=== PATIENT | female | born 1960 | race Caucasian/White ===

== ENCOUNTER 2023-10-07 09:04 | Emergency (ER) | payer OTHER ==
--- OUTSIDE RECORDS SUMMARY | 2023-10-07 09:07 | XMS REPORT | Continuity of Care Document ---
:[address] [facility] t Address [address] [facility] [address] [place] [address] Care Team Providers Name Role Phone Asked, No Pcp Primary Care Physician Unavailable Beto Ness Attending Clinician Unavailable TEDDY_Amilcar_T Attending Clinician Unavailable Nydia Hedrick MD Attending Clinician Stacia Fitzgerald Attending Clinician [phone] DR CHRISTINE HONEYCUTT Attending Clinician Unavailable VESTA_ONELIA_Amilcar_T Admitting Clinician Unavailable DR CHRISTINE HONEYCUTT Admitting Clinician Unavailable Payers Payer Name Policy Type Policy Number Effective Date Expiration Date [facility] [id number] Problems Condition Condition Condition Status Onset Resolution Last Treating Co mments Source Name Details Category Date Date Treatment Clinician Date History of History of Problem Active [facility] tear of Tear of 4-19 Medical retina Retina 00:00: 00 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 00:00: 00 Benign Benign Problem Active 2017-11 [facility] essential Essential 2-20 Medi tory hypertensi Hypertensi 00:00: on on 00 Cobalamin Cobalamin Problem Active 2016-11 Angy via deficiency Deficiency 2-20 Me dical 00:00: 00 Vitamin D Vitamin D Problem Active 2016-11 Angy via deficiency Deficiency 2-20 Me dical 00:00: 00 Mixed Mixed Problem Active 2016-11 [facility] hyperlipid Hyperlipid 2-20 Me dical emia emia 00:00: 00 Asthma Asthma Problem Active 2016-11 [facility] 2-20 Medical 00:00: 00 Allergies, Adverse Reactions, Alerts Allergy Allergy Status Severity Reaction(s) Onset Inactive Treating Comm ents Source Name Type Date Date Clinician Penicill DA Active U Anaphylaxis [facility] Cm ins 18 00:00: 00 erythrom DA Active U Difficulty [facility] m ycin Swallowing 18 base 00:00: 00 Azithrom Allergy Active [facility] ycin to Medical substanc e FISH Allergy Active Moderate Angioedema Angy via CONTAINI to to severe Medic al NG substanc PRODUCTS e PENICILL Allergy Active [facility] INS to Medical substanc e CIGARETT Allergy Active [facility] E SMOKE to Medical substanc e FIRE ANT Allergy Active [facility] to Medical substanc e House Allergy Active [facility] Dust to Medical substanc e Mold Allergy Active [facility] to Medical substanc e SHELLFIS Allergy Active [facility] H to Medical DERIVED substanc e Social History Social Habit Start Date Stop Date Quantity Comments Source Sexual orientation 2021-08-07 Heterosexual Meth odist 07:19:45 (finding) Hospital Sex Assigned At [birth year] F Sikhism 00:00:00 00:00:00 [facility] Smoking Status Start Date Stop Date Source Never Smoker [facility] Tobacco smoking consumption unknown [facility] Medications Ordered Filled Start Stop Current Ordering Indication Dosage Frequency Signature Comments Components Source Medication Medication Date Date Medication? Clinician (SIG) Name Name hydrochloro hydrochloro No 1 Q1D hydrochlor [facility] thiazide thiazide 12-10 othiazide Me dical 12.5 mg 12.5 mg 00:00: 12.5 mg tablet Take tablet Take 00 tablet 1 tablet 1 tablet Take 1 every day every day tablet by oral by oral every day route as route as by oral needed for needed for route as 90 days. 90 days. needed for 90 days. prednisolon prednisolon No prednisolo [facility] e acetate 1 e acetate 1 2-06 ne acetate Medical % eye % eye 00:00: 1 % eye drops,suspe drops,suspe 00 drops,susp nsion nsion ension Instill by Instill by Instill by ophthalmic ophthalmic ophthalmic route for route for route for 30 days. 30 days. 30 days. Ventolin Ventolin 2023-0 No 2puff(s Q5H Ventolin [facility] HFA 90 HFA 90 2-06 ) HFA 90 Medical mcg/actuati mcg/actuati 00:00: mcg/actuat on aerosol on aerosol 00 ion inhaler inhaler aerosol Inhale 2 Inhale 2 inhaler puffs every puffs every Inhale 2 4-6 hours 4-6 hours puffs by by every 4-6 inhalation inhalation hours by route as route as inhalation needed for needed for route as 16 days. 16 days. needed for 16 days. hydrochloro hydrochloro 0 No 1 Q1D hydrochlor [facility] thiazide thiazide 12-10 othiazide Me dical 12.5 mg 12.5 mg 00:00: 12.5 mg tablet Take tablet Take 00 tablet 1 tablet 1 tablet Take 1 every day every day tablet by oral by oral every day route as route as by oral needed for needed for route as 90 days. 90 days. needed for 90 days. prednisolon prednisolon No prednisolo [facility] e acetate 1 e acetate 1 12-10 ne acetate Medical % eye % eye 00:00: 1 % eye drops,suspe drops,suspe 00 drops,susp nsion nsion ension Instill by Instill by Instill by ophthalmic ophthalmic ophthalmic route for route for route for 30 days. 30 days. 30 days. Ventolin Ventolin 0 No 2puff(s Q5H Ventolin [facility] HFA 90 HFA 90 2-06 ) HFA 90 Medical mcg/actuati mcg/actuati 00:00: mcg/actuat on aerosol on aerosol 00 ion inhaler inhaler aerosol Inhale 2 Inhale 2 inhaler puffs every puffs every Inhale 2 4-6 hours 4-6 hours puffs by by every 4-6 inhalation inhalation hours by route as route as inhalation needed for needed for route as 16 days. 16 days. needed for 16 days. atorvastati atorvastati No atorvastat [facility] n 10 mg n 10 mg in 10 mg Medic al tablet TAKE tablet TAKE tablet 1 TABLET BY 1 TABLET BY TAKE 1 MOUTH EVERY MOUTH EVERY TABLET BY DAY DAY MOUTH EVERY DAY lisinopril lisinopril No lisinopril [facility] 40 mg 40 mg 40 mg Medical tablet TAKE tablet TAKE tablet 1 TABLET BY 1 TABLET BY TAKE 1 MOUTH EVERY MOUTH EVERY TABLET BY DAY DAY MOUTH EVERY DAY atorvastati atorvastati No 1 Q1D atorvastat [facility] n 10 mg n 10 mg in 10 mg Medic al tablet Take tablet Take tablet 1 tablet 1 tablet Take 1 every day every day tablet by oral by oral every day route for route for by oral 90 days. 90 days. route for 90 days. diclofenac diclofenac No 1drop(s QID diclofenac [facility] 0.1 % eye 0.1 % eye ) 0.1 % eye Medical drops drops drops Instill 1 Instill 1 Instill 1 drop 4 drop 4 drop 4 times a day times a day times a by by day by ophthalmic ophthalmic ophthalmic route for route for route for 25 days. 25 days. 25 days. fluticasone fluticasone No 2spray( Q1D fluticason [facility] propionate propionate s) e Med ical 50 50 propionate mcg/actuati mcg/actuati 50 on nasal on nasal mcg/actuat spray,suspe spray,suspe ion nasal nsion [place] nsion [place] spray,susp 2 sprays 2 sprays ension every day every day [place] 2 by nasal by nasal sprays route for route for every day 90 days. 90 days. by nasal route for 90 days. hydrochloro hydrochloro No 1 Q1D hydrochlor [facility] thiazide thiazide othiazide Me dical 12.5 mg 12.5 mg 12.5 mg tablet Take tablet Take tablet 1 tablet 1 tablet Take 1 every day every day tablet by oral by oral every day route as route as by oral needed for needed for route as 90 days. 90 days. needed for 90 days. lisinopril lisinopril No 1 Q1D lisinopril [facility] 40 mg 40 mg 40 mg Medical tablet Take tablet Take tablet 1 tablet 1 tablet Take 1 every day every day tablet by oral by oral every day route for route for by oral 30 days. 30 days. route for 30 days. Ventolin Ventolin No 2puff(s Q5H Ventolin [facility] HFA 90 HFA 90 ) HFA 90 Medical mcg/actuati mcg/actuati mcg/actuat on aerosol on aerosol ion inhaler inhaler aerosol Inhale 2 Inhale 2 inhaler puffs every puffs every Inhale 2 4-6 hours 4-6 hours puffs by by every 4-6 inhalation inhalation hours by route as route as inhalation needed for needed for route as 16 days. 16 days. needed for 16 days. atorvastati atorvastati No atorvastat Dena n 10 mg n 10 mg in 10 mg Medic al tablet TAKE tablet TAKE tablet 1 TABLET BY 1 TABLET BY TAKE 1 MOUTH EVERY MOUTH EVERY TABLET BY DAY DAY MOUTH EVERY DAY lisinopril lisinopril No lisinopril [facility] 40 mg 40 mg 40 mg Medical tablet TAKE tablet TAKE tablet 1 TABLET BY 1 TABLET BY TAKE 1 MOUTH EVERY MOUTH EVERY TABLET BY DAY DAY MOUTH EVERY DAY Vital Signs Vital Name Observation Time Observation Value Comments Source BP Systolic 2022-12-14 00:00:00 136 mm[Hg] [facility]ena [facility] Body Weight 2022-12-14 00:00:00 3904 [oz_av] [facility]ena [facility] BP Diastolic 2022-12-14 00:00:00 72 mm[Hg] [facility] Height 2022-12-14 00:00:00 65 [in_i] Dena Thao edical BMI (Body Mass Index) 2022-12-14 00:00:00 40.6 kg/m2 [facility] BP Diastolic 2022-12-10 00:00:00 78 mm[Hg] Dena Thao edical Height 2022-12-10 00:00:00 65 [in_i] Dena Thao edical BMI (Body Mass Index) 2022-12-10 00:00:00 40.7 kg/m2 [facility] BP Systolic 2022-12-10 00:00:00 122 mm[Hg] Dena Thao edical Body Weight 2022-12-10 00:00:00 3909 [oz_av] [facility]ena Thao ed[facility] BP Diastolic 2022-03-28 00:00:00 80 mm[Hg] [facility]ao ed[facility] Height 2022-03-28 00:00:00 65 [in_i] Dena Thao edical BMI (Body Mass Index) 2022-03-28 00:00:00 40.1 kg/m2 [facility] BP Systolic 2022-03-28 00:00:00 132 mm[Hg] [facility]ena Thao ed[facility] Body Weight 2022-03-28 00:00:00 3856 [oz_av] Dena Thao edical Procedures Procedure Date / Time Performing Clinician Source Performed US BREAST COMPLETE 2023-01-29 19:15:[address] [facility] BILATERAL MAMMO BREAST DIAGNOSTIC 2023-01-29 18:52:27 Nydia Hedrick [facility] TOMOSYNTHESIS BILATERAL MAMMO, screening, 2022-12-14 00:00:00 [facility] Med ical digital, bilateral Unlisted Px Ant Segment 2022-02-20 00:00:00 [facility] Eye Ophthalmologic Surgery 2020-10-14 00:00:00 [facility] a Medical Colonoscopy 2017-04-04 00:00:00 [facility] Medic al Eye Surgery [facility] Medical Reconstruction of Cornea [facility] Medical Plan of Care Planned Activity Planned Date Details Comments Source Future Scheduled Test 2023-10-07 Screening [facility] 09:06:28 malignant neoplasm of colon (procedure) [code = 656960192] Future Scheduled Test 2023-10-07 [facility] 09:[facility]28 malignant neoplasm of colon (procedure) [code = 396849380] Future Scheduled Test 2023-10-07 [facility] 09:06:28 malignant neoplasm of colon (procedure) [code = 086172639] Future Scheduled Test 2023-10-[address] [facility] 09:06:28 screening (procedure) [code = 954391840] Future Scheduled Test 2023-10-07 Screening for [facility] 09:06:28 malignant neoplasm of cervix (procedure) [code = 704448293] Future Scheduled Test 2023-10-07 Screening for [facility] 09:06:28 malignant neoplasm of colon (procedure) [code = 429815290] Future Scheduled Test 2023-10-07 [facility] 09:06:28 malignant neoplasm of colon (procedure) [code = 683407885] Future Scheduled Test 2023-10-07 SHINGLES VACCINES [facility] 09:06:28 (1 of 2) [code = SHINGLES VACCINES (1 of 2)] Future Scheduled Test 2023-10-07 COVID-19 VACCINE ([address] [place] [address] 09:06:28 - season) [code = COVID-19 VACCINE ( - season)] Future Scheduled Test 2023-10-07 INFLUENZA VACCINE [facility] 09:06:28 (#1) [code = INFLUENZA VACCINE (#1)] Future Scheduled Test 2023-10-07 BREAST CANCER [facility] 09:06:28 SCREENING [code = BREAST CANCER SCREENING] Diagnostic Test 2022-12-14 pap, LB + reflex to [facility] Pending 00:00:00 HR HPV if ASC-U [code = pap, LB + reflex to HR HPV if ASC-U] Diagnostic Test 2022-12-14 fecal occult blood, [facility] Pending 00:00:00 immunoassay, stool [code = fecal occult blood, immunoassay, stool] Instructions [facility] Encounters Start End Encounter Admission Attending Care Care Encounter Source Date/Time Date/Time Type Type Clinicians Facility Department ID 2022-02-20 Inpatient Thi, [facility] [id number] [facility] 07:00:00 Beto 88 2023-06-24 2023-06-24 Outpatient GC_PFP_Mill PRIV PRIV [id number] [facility] 00:00:00 00:00:00 er_T [id number] Medica l 2023-01-29 2023-01-29 [facility], 1.2.840.1 [id number] [id number] Methodi 12:42:00 23:59:00 Encounter Nydia Hernandez [id number] 3.430.2.7 Hospit a .3.940760 l .8 2023-01-29 2023-01-29 [facility] 1.2.840.1 [id number] Method[facility] 12:41:39 12:41:39 Encounter Nydia Hernandez [id number] 3.430.2.7 Hospit a .3.818796 l .8 2023-01-29 2023-01-29 Outpatient [facility] [id number] [place] 00:00:00 00:00:00 NYDIA [address] 2023-01-29 2023-01-29 Outpatient [facility] [id number] [place] 00:00:00 00:00:00 NYDIA [address] 2023-01-03 2023-01-03 Transcribe [facility] 1.2.840.1 [id number] Method[facility] 00:00:00 00:00:[address]1.[address] 3.430.2.7 Hospit a .3.143943 l .8 2022-12-17 2022-12-17 Transcribe Brittanyjeri, 1.2.840.1 [id number] [facility] 00:00:00 00:00:00 Licha Hernandez [id number] 3.430.2.7 Hospit a .3.280725 l .8 2022-12-17 2022-12-17 Travel 1.2.840.1 [id number] [id number] [facility] 00:00:00 00:00:[address] 3.430.2.7 0.2.7.3.698 Ho spita .3.866453 084.8 l .8 2022-12-14 2022-12-[address] [facility] [id number] [facility] 00:00:00 00:00:00 [facility], GC_PFP_High PA: [address] [address], Office* [address] [address] , Ph. 2022-12-10 2022-12-10 Stacia Moralez [facility] - [facility] [id number] [facility] 00:00:00 00:00:00 [facility] Fitzgerald, GC_PFP_High PA: [address] [address], Office* [address], [place] [address] , Ph. 2022-12-07 2022-12-07 Outpatient GC_PFP_Mill PRIV PRIV [id number] [facility] 00:00:00 00:00:00 er_T [id number] Medica l 2022-12-07 2022-12-07 Outpatient GC_PFP_Mill PRIV PRIV [id number] [facility] 00:00:00 00:00:00 er_T [id number] Medica l 2022-12-07 2022-12-07 Outpatient GC_PFP_Mill PRIV PRIV [id number] [facility] 00:00:00 00:00:00 er_T [id number] Medica l 2022-12-07 2022-12-07 Outpatient GC_PFP_Mill PRIV PRIV [id number] [facility] 00:00:00 00:00:00 er_T [id number] Medica l 2022-12-07 2022-12-07 Outpatient GC_PFP_Mill PRIV PRIV [id number] [facility] 00:00:00 00:00:00 er_T [id number] Medica l 2022-06-15 2022-06-15 Outpatient GC_PFP_Mill PRIV PRIV [id number] [facility] 00:00:00 00:00:00 er_T [id number] Medica l 2022-03-28 2022-03-28 Outpatient GC_PFP_Mill PRIV PRIV [id number] [facility] 06:39:00 06:39:00 er_T [id number] Medica l 2022-03-28 2022-03-28 Outpatient Amilcar, PRIV PRIV [id number] a-e 00:00:00 00:00:00 Stacia Moralez [id number] Mahsa [id number] 2022-03-28 2022-03-28 Stacia Moralez [facility] 00:00:00 00:00:00 [facility] al Amilcar, GC_PFP_High PA: [address] [place] [address], Office* [address], [place] [address] , Ph. 2021-10-10 2021-10-10 Outpatient GC_PFP_Mill PRIV PRIV [id number] [facility] 01:59:00 01:59:00 er_T [id number] Medica l 2021-10-10 2021-10-10 Outpatient GC_PFP_Mill PRIV PRIV [id number] [facility] 01:59:00 01:59:00 er_T [id number] Medica l 2021-10-10 2021-10-10 Outpatient GC_PFP_Mill PRIV PRIV [id number] [facility] 01:59:00 01:59:00 er_T [id number] Medica l 2021-08-07 2021-08-07 Outpatient MARITO, [facility] [id number] [place] 00:00:00 00:00:00 NYDIA Jiang i 2021-08-07 2021-08-07 Outpatient MARITO [facility] [id number] [place] 00:00:00 00:00:00 NYDIA 544 Method i 2021-03-27 2021-03-27 Outpatient MARITO [facility] [id number] [place] 00:00:00 00:00:00 NYDIA 001 Method i 2017-04-30 2017-04-30 Outpatient Randy HONEYCUTT [facility] [id number] [place] 06:15:00 10:25:00 [facility] Results Test Description Test Time Test Comments Results Result [facility] e Comments US Breast Complete 2023-01-03 PROCEDURE:Bilateral Sikhism Bilateral [address] [place] [address] 19:32:29 Diagnostic Mammogram, Bilateral Breast Ultrasound HISTORY:Patient is 62 years old and is seen for diagnostic evaluation of additional imaging evaluation in the right breast. The patient has no family history of breast cancer. The patient has no current palpable breast complaints. FILMS COMPARED:The present examination has been compared to prior imaging studies dated 03/27/2021 and 08/07/2021. MAMMOGRAM FINDINGS:There are scattered areas of fibroglandular densities. There are no new suspicious masses, calcifications or distortions in either breast. Finding 1: Follow-up examination was performed for the focal asymmetry in the right breast, upper outer quadrant seen on 08/07/2021. On the present examination, there is a persistent ovoid isodense focal asymmetry with interspersed fat and without associated calcification or distortion in the posterior upper outer quadrant of the right breast which does not appear significantly changed compared to prior mammograms dating back to March 2021. Finding 2: There is a 0.8 cm oval, circumscribed low-density mass in the posterior lateral left breast. ULTRASOUND FINDINGS:Bilateral real-time whole breast sonography included all four quadrants and the retroareolar regions under close supervision by the radiologist. Finding 1: There is no suspicious sonographic correlate. Finding 2: Ultrasound demonstrates a simple cyst in the left breast 3 o'clock position 8 cm from the nipple measuring 0.7 x 0.7 x 0.4 cm which represents a likely correlate for the mammographic mass. A few additional scattered subcentimeter simple and minimally complicated cysts are seen bilaterally. IMPRESSION:Finding 1: No significant interval change in the probably benign right breast focal asymmetry compared to prior imaging dating back to March 2021. Completion of surveillance is advised in 12 months with bilateral diagnostic mammography with ultrasound if needed. Finding 2: Fibrocystic change of the left breast. No specific mammographic or sonographic features of left breast malignancy. Findings and recommendations were discussed with the patient at the time of the examination. BI-RADS Category 3:Probably Benign Finding(s) Workstation Name: [id number] A NEGATIVE X-RAY REPORT SHOULD NOT DELAY BIOPSY IF A DOMINANT OR CLINICALLY SUSPICIOUS MASS IS PRESENT. NOT ALL CANCERS ARE IDENTIFIED BY X-RAY. Mammo Breast 2023-01-03 PROCEDURE:Bilateral [facility] 19:32:29 Diagnostic Bilateral Mammogram, Bilateral Breast Ultrasound HISTORY:Patient is 62 years old and is seen for diagnostic evaluation of additional imaging evaluation in the right breast. The patient has no family history of breast cancer. The patient has no current palpable breast complaints. FILMS COMPARED:The present examination has been compared to prior imaging studies dated 03/27/2021 and 08/07/2021. MAMMOGRAM FINDINGS:There are scattered areas of fibroglandular densities. There are no new suspicious masses, calcifications or distortions in either breast. Finding 1: Follow-up examination was performed for the focal asymmetry in the right breast, upper outer quadrant seen on 08/07/2021. On the present examination, there is a persistent ovoid isodense focal asymmetry with interspersed fat and without associated calcification or distortion in the posterior upper outer quadrant of the right breast which does not appear significantly changed compared to prior mammograms dating back to March 2021. Finding 2: There is a 0.8 cm oval, circumscribed low-density mass in the posterior lateral left breast. ULTRASOUND FINDINGS:Bilateral real-time whole breast sonography included all four quadrants and the retroareolar regions under close supervision by the radiologist. Finding 1: There is no suspicious sonographic correlate. Finding 2: Ultrasound demonstrates a simple cyst in the left breast 3 o'clock position 8 cm from the nipple measuring 0.7 x 0.7 x 0.4 cm which represents a likely correlate for the mammographic mass. A few additional scattered subcentimeter simple and minimally complicated cysts are seen bilaterally. IMPRESSION:Finding 1: No significant interval change in the probably benign right breast focal asymmetry compared to prior imaging dating back to March 2021. Completion of surveillance is advised in 12 months with bilateral diagnostic mammography with ultrasound if needed. Finding 2: Fibrocystic change of the left breast. No specific mammographic or sonographic features of left breast malignancy. Findings and recommendations were discussed with the patient at the time of the examination. BI-RADS Category 3:Probably Benign Finding(s) Workstation Name: [id number] A NEGATIVE X-RAY REPORT SHOULD NOT DELAY BIOPSY IF A DOMINANT OR CLINICALLY SUSPICIOUS MASS IS PRESENT. NOT ALL CANCERS ARE IDENTIFIED BY X-RAY. Hemoglobin.gastrointestinal.lower [Presence] in Stool by 01-03-10 12:57:56 Immunoassay Test Item Value Reference Range Interpretation Comme nts occult blood (test code = occult blood) negative [facility]Hemoglobin.total in Blood by [id number] 00:00:00 Test Item Value Reference Range Interpretation Comments Hemoglobin A1c/Hemoglobin.total in 5.4 % <5.7 Blood (test code = 4548-4) [facility] 1996 panel - Serum or [id number] 00:00:00 Test Item Value Reference Range Interpretation Comments chol/HDL ratio (test code = 2.9 <5.8 chol/HDL ratio) cholesterol (test code = 177 mg/dL <200 cholesterol) HDL % of cholesterol (test code 35 % >14 = HDL % of cholesterol) HDL chol., direct (test code = HDL 62 mg/dL >50 chol., direct) Cholesterol in LDL [Mass/volume] in 95 mg/dL <100 Serum or Plasma (test code = 2089-1) LDL/HDL ratio (test code = LDL/HDL 1.53 <3.56 ratio) non-HDL cholesterol (test code = 115 mg/dL <130 non-HDL cholesterol) triglycerides (test code = 99 mg/dL <150 triglycerides) VLDL, calculated (test code = VLDL, 20 mg/dL 7-32 calculated) [facility] panel - Blood by Automated [id number] 00:00:00 Test Item Value Reference Range Interpretation Comments WBC (test code = WBC) 8.23 x10(3)/uL 4.00-10.10 RBC (test code = RBC) 4.23 x10(6)/uL 3.58-5.19 HGB (test code = HGB) 12.4 g/dL 11.0-15.5 HCT (test code = HCT) 38.2 % 31.5-44.8 MCV (test code = MCV) 90.3 fL 78.0-98.0 MCH (test code = MCH) 29.3 pg 25.2-32.6 MCHC (test code = MCHC) 32.5 g/dL 31.0-34.7 RDW (test code = RDW) 13.6 % 12.0-15.5 platelet count (test code = 338 x10(3)/uL 140-425 platelet count) lymphs (test code = lymphs) 33.7 % 13.7-50.9 monos (test code = monos) 6.9 % 3.0-11.9 eos (test code = eos) 0.7 % 0.0-5.0 basos (test code = basos) 0.4 % 0.0-1.0 MPV (test code = MPV) 10.7 fL 8.6-12.1 polys (test code = polys) 58.1 % 37.1-78.1 immature granulocytes (test 0.2 % 0.0-1.0 code = immature granulocytes) [facility] Ratio] in [id number] 00:00:00 Test Item Value Reference Range Interpretation Comments album/creat ratio, urine 10.8 mg/g creat <30.0 (test code = album/creat ratio, urine) creat.urn.timed/random (test 110.8 mg/dL not estab. code = creat.urn.timed/random) microalbumin,random (test <1.2 not estab. code = microalbumin,random) [facility]olate[facility]Cyanocobalamin [Interpretation] in Serum or [id number] 00:00:00 Test Item Value Reference Range Interpretation Comments folic acid (test code = folic 11.27 NG/mL >5.38 acid) vitamin B12 (test code = vitamin 422 pg/mL 232-1245 B12) [facility] 2000 panel - Serum or [id number] 00:00:00 Test Item Value Reference Range Interpretation Comments A/G ratio (test code 1.7 ratio 1.1-2.9 = A/G ratio) albumin (test code = 4.5 g/dL 3.5-5.2 albumin) alk phos (test code = 97 U/L 40-156 alk phos) ALT (test code = ALT) 12 U/L <33 AST (test code = AST) 17 U/L <32 bilirubin, total 0.3 mg/dL <1.2 (test code = bilirubin, total) BUN (test code = BUN) 17 mg/dL 8-23 BUN/creat ratio (test 23.6 ratio 10.0-28.0 code = BUN/creat ratio) calcium (test code = 9.7 mg/dL 8.6-10.4 calcium) chloride (test code = 105 mmol/L 96-108 chloride) CO2 (test code = CO2) 25 mmol/L 22-29 creatinine (test code 0.72 mg/dL 0.49-1.02 = creatinine) E-GFR (test code = 89 mL/min See_Comment [Automat ed message] E-GFR) The system tagga generated this result transmitted ref erence range: >or=60. The reference range was not used to int erpret this result as normal/abnormal . E-GFR, 103 mL/min See_Comment [Automated m essage] citizen of [place] (test code = The sy stem which E-GFR, generated thi s result citizen of [place]) transmitted ref erence range: >or=60. The reference range was not used to int erpret this result as normal/abnormal . globulin (test code = 2.6 g/dL 1.7-3.7 globulin) glucose (test code = 103 mg/dL 70-99 H glucose) potassium (test code 4.9 mmol/L 3.5-5.5 = potassium) sodium (test code = 140 mmol/L 135-147 sodium) total protein (test 7.1 g/dL 5.9-8.4 code = total protein) [facility] T4 and TSH panel - Serum or [id number] 00:00:00 Test Item Value Reference Range Interpretation Comments thyroxine, free (FT4) (test code 0.96 NG/dL 0.84-1.62 = thyroxine, free (FT4)) TSH (test code = TSH) 2.630 uIU/mL 0.282-4.000 [facility] MedicalUrinalysis complete W Reflex Culture panel - [id number] 00:00:00 Test Item Value Reference Range Interpretation Comments bacteria, urine (test code = few none-few bacteria, urine) blood, urine (test code = blood, negative negative urine) bilirubin, urine (test code = negative negative bilirubin, urine) cast, granular, ur (test code = not present not present cast, granular, ur) cast, hyaline, urine (test code = not present not present cast, hyaline, urine) cast, RBC, urine (test code = not present not present cast, RBC, urine) character (test code = character) clear clear color (test code = color) yellow yellow crystals urine (test code = none none crystals urine) epithelial cells, ur (test code = few none-few epithelial cells, ur) glucose, urine (test code = negative negative glucose, urine) ketone, urine (test code = negative negative ketone, urine) leukocyte esterase (test code = trace negative A leukocyte esterase) nitrites urine (test code = negative negative nitrites urine) pH urine (test code = pH urine) 5.5 5.0-8.0 protein, urine (test code = negative negative protein, urine) RBC, urine (test code = RBC, 0-2 0-2 urine) specific gravity ur (test code = 1.021 1.003-1.030 specific gravity ur) urobilinogen urine (test code = 0.2 mg/dL 0.2-1.0 urobilinogen urine) WBC, urine (test code = WBC, 0-5 0-5 urine) [facility] Medical Notes Date/Time Note Provider Source 2022-02-20 13:02:00 [id number]:02:00 [facility] [address] [place] [address] Opthalmology Operative Note Signed with Addenda Patient: Erin Cooper Medical Record#: [id number] : 1960 Acct:[id number] Age/Sex: 61 / F ADM Date: 02/20/22 Loc: [facility] Room: Report Number: [id number] Attending Dr : Beto Ness MD ADDENDUM Procedure;Vitrectomy peel of internal limiting membrane,and gas exchange ,left eye Technique/Discription: After the membrane was peeled,an air exchange performed. then air was exchanged for 18% SF6 gas. Addendum Dictated By: Beto Ness MD Addendum Signed By: <Electronically signed by Beto Ness MD> 05/17/221606 Addendum Cosigned By: DD/ TD/TT: 05/17/22 General Surgery Operative Note Date of Procedure: 02/20/22 Time of Procedure: 13:02 Detailed Description of Procedure: PreOperative Diagnosis ; macular hole of the left eye PostOperative Diagnosis; macular hole of the left eye Procedure(s) Performed Surgeon Beto Ness M.D. Tariff Supervisor None Anesthesia Retrobulbar Block, Monitor Anesthesia Care Estimated Blood Loss Negligible Complications None Technique/Description The patient was given a retrobulbar block as well as retrobulbar steroid injection under monitored anesthesia care. The facial area was prepped and draped in the usual sterile fashion for ophthalmic surgery . A wire lid speculum was inserted. Three 25-gauge cannulas were placed superiorly. Anterior,centra l and posterior vitrectomy was carried out with th e vitrector. Care was taken to disinserted the posterior hyaloid face. [place] blue dye was used to stain the internal limiting membrane which was then peeled in a circular fashion with straight intra-ocular forceps around the macular hole. All cannulas were removed, neomycin, polymyxin and dexamethasone ophthalmic ointment instilled and then a double patch applied over the eye. Disposition Patient was taken to the Da y Surgery Unit in stable condition. Then discharge d home after meeting Day Surgery Unit criteria. Keep patch on until tomorrow. No heavy lifting. Resume regular diet and systemic medications. Begin eye drops as prescribed. Follow-up in the office in the next 1-2 weeks. Dictated By: Beto Ness MD Dictated By: Signed By: Beto Ness MD 02/20/22 130 DD/ 130 TD/TT: 02/20/221301 Open Die Inspector: SHANELL cc: SHANELL; PUCRO* Beto Ness MD; Nydia Hedrick MD P.OPHT.OPNOphthalmology Operative [id number], [id number]:02:00P.OPHT.OP N AVAvailable for patient [id number]:04:02 2022-02-19 16:37:00 [id number]:37:00 [facility] [address] [place] [address] Ophthalmology H P Signed Patient: ERIN COOPER Medical Record#: [id number] : 1960 Acct:[id number] Age/Sex: 61 / F Admit/Reg Date : 02/15/22 Loc: [facility] Room: Report Number: [id number] Attending Dr: Beto Ness MD Surgical HPI Date of Encounter: 02/19/22 Time of Encounter: 16:37 History of Present Illness: CHIEF COMPLAINT: Decreased vision HISTORY OF PRESENT ILLNESS: Loss of central vision left eye for the past 3 weeks. ALLERGIES: Penicillin and erythromycin MEDICATION LIST: PAST MEDICAL HISTORY: PAST SURGICAL HISTORY: Cataract posterior chamber lens implant both eyes, yet capsulotomy both eyes, section, corneal transplant both eyes, FAMILY HISTORY: SOCIAL HISTORY: Denies tobacco REVIEW OF SYSTEMS: PHYSICAL EXAM: General well-developed well-nourished female no acute distress. Eye examination visual acuity right eye measures 20 /50+ 2. Dilated examination shows small full-thickness macular hole with vitreal macular adhesion. OCT shows that the vitreous still attached to the nasal edge ofthe fovea as well a s to the optic nerve. Rest of retina exam is normal. Heart regular rate. Lung clear. Home Medications: atorvastatin 1 tab PO DAILY 2 2 [History Confirmed 02/19/22 Last Taken Unknown] ergocalciferol (vitamin D2) 1,000 unit capsule 1,000 unit PO DAILY 02/19/22 [History Confirmed 02/19/22 Last Taken Unknown] lisinopril 20 mg tablet 20 mg PO DAILY 02/19/22 [History Confirme d 02/19/22 Last Taken Unknown] multivitamin 1 tab PO DAILY 02/19/22 [History Confirmed 02/19/22 Last Taken Unknown] prednisolone acetate 1 % eye drops,suspension 1 drp OPHTHALMIC (EYE) PROTOCOL 02/19/22 [History Confirmed 02/19/22 Last Taken Unknown] Allergies/Adverse Reactions: erythromycin base Allergy (Verified 02/19/22 08:36) Difficulty Swallowing Penicillins Allergy (Verified 02/19/22 08:36) Anaphylaxis rash Past Medical/Surgical History Medical History: Medica l History (Last Updated 02/19/22 @ 08:35 by Mary Peoples, RN) Arthritis (Medical) M19.90 Asthma (Medical) J45.909 Bilateral artificial lens implant (Medical) Z96.1 High blood pressure (Medical) I10 High cholesterol (Medical) E78.00 Macular hole of left eye (Medical) H35.342 Never a smoker (Social Hx) Wears glasses (Medical) Z97.3 for close up or small writing Surgical History: Surgical History (Last Updated 02/19/22 @ 08:35 by Mary Peoples, RN) History of 2 sections (Surgical) Z98.891 History of eye surgery (Surgical) Z98.890 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 - Attestation Attestation: I have reviewed and updated the patient's past medical, social, and family history as necessary and have reviewed pertinent laboratory findings. Confirm PMH/FSH Attestation: Yes Problem List Attestation Statement: I have documented a relevant problem and problem plan for this visit. Attending Confirm Problem: Yes Attending Problem List Check: Pass Surgical Quality VTE Risk Level: Lynnette y low - Patient Rights Does Pt Have an Advance Directive for End of Life Issues?: No Does Patient Have a Health Care Proxy?: No Dictated By: Beto Ness MD Signed By: Beto Ness MD 02/19/22 1641 DD/ 163 TD/TT: 02/19/22 163 Open Die Inspector: SHANELL cc: SHANELL; PUCRO* Beto Ness MD; Nydia Hedrick MD P.OPHT.HPOphthalmology History \T\ AwmqsoqgOSGJW61EnnagzwznEros [id number]:37:00P.OPHT.HP A VAvailable for patient [id number]:42:52
[2023-10-07] MEDS ORDERED: HYDROMORPHONE HCL 1 MG/ML INJ ONE ×2 (09:50→12:58)
[2023-10-07] MEDS ORDERED: DIAZEPAM 2 MG TABLET ONE (09:50)
--- NOTE | 2023-10-07 11:09 | RAD REPORT ---
EXAM DESCRIPTION: RAD - Elbow Right 3 View - 10/07/2023 11:03 am CLINICAL HISTORY: Pain;Smash injury COMPARISON: No comparisons FINDINGS/IMPRESSION: Distal humeral fracture which is probably transcondylar. No dislocation. A geeta nant fragment is displaced medially and superiorly.
--- NOTE | 2023-10-07 11:11 | RAD REPORT ---
EXAM DESCRIPTION: RAD - Forearm Right - 10/07/2023 11:03 am CLINICAL HISTORY: Pain;Smash injury COMPARISON: No comparisons FINDINGS/IMPRESSION: No right forearm fracture. Distal humeral fracture. Reference dedicated right e lbow radiograph.
--- NOTE | 2023-10-07 11:29 | EDPHYS ---
Physician Documentation [facility] Name: Vandana Aguirre Age: 62 yrs Sex: Female : 1960 Arrival Date: 10/07/2023 Time: 09: Bed 11 Private MD: ED Physician Robin Stockton HPI: 10/07 10:13 This 62 yrs old Female presents to ER via Ambulatory with complaints of Fall Injury - snw ARM. 10:13 Details of fall: The patient fell from an upright position, while walking, pulled down snw by the dog, landed on bilateral knees and then onto right elbow. Onset: The symptoms/episode began/occurred suddenly, just prior to arrival. Associated injuries: The patient sustained right elbow, obvious fracture, painful injury. Severity of symptoms: At their worst the symptoms were moderate, severe. The patient has not experienced similar symptoms in the past. It is unknown whether or not the patient has recently seen a physician. no head contact, loc. Historical: - Allergies: 09:26 Erythromycin; hb 09:26 PENICILLINS; hb - Home Meds: 09:28 atorvastatin oral [Active]; Lisinopril Oral [Active]; hb - PMHx: 09:28 Hypertension; hb - Immunization history:: Adult Immunizations up to date. - Social history:: Smoking status: . ROS: 10:12 Constitutional: Negative for fever, chills, and weight loss, Eyes: Negative for injury, snw pain, redness, and discharge, ENT: Negative for injury, pain, and discharge, Neck: Negative for injury, pain, and swelling, Cardiovascular: Negative for chest pain, palpitations, and edema, Respiratory: Negative for shortness of breath, cough, wheezing, and pleuritic chest pain, Abdomen/GI: Negative for abdominal pain, nausea, vomiting, diarrhea, and constipation, Back: Negative for injury and pain, : Negative for injury, bleeding, discharge, and swelling, Skin: Negative for injury, rash, and discoloration, Neuro: Negative for headache, weakness, numbness, tingling, and seizure, Psych: Negative for depression, anxiety, suicide ideation, homicidal ideation, and hallucinations, 10:12 MS/extremity: Positive for injury or acute deformity, decreased range of motion, pain, swelling, of the right elbow, Exam: 10:12 Constitutional: This is a well developed, well nourished patient who is awake, alert, snw and in no acute distress. Head/Face: Normocephalic, atraumatic. Eyes: Pupils equal round and reactive to light, extra-ocular motions intact. Lids and lashes normal. Conjunctiva and sclera are non-icteric and not injected. Cornea within normal limits. Periorbital areas with no swelling, redness, or edema. ENT: Nares patent. No nasal discharge, no septal abnormalities noted. Tympanic membranes are normal and external auditory canals are clear. Oropharynx with no redness, swelling, or masses, exudates, or evidence of obstruction, uvula midline. Mucous membranes moist. Neck: Trachea midline, no thyromegaly or masses palpated, and no cervical lymphadenopathy. Supple, full range of motion without nuchal rigidity, or vertebral point tenderness. No Meningismus. Chest/axilla: Normal chest wall appearance and motion. Nontender with no deformity. No lesions are appreciated. Cardiovascular: Regular rate and rhythm with a normal S1 and S2. No gallops, murmurs, or rubs. Normal PMI, no JVD. No pulse deficits. Respiratory: Lungs have equal breath sounds bilaterally, clear to auscultation and percussion. No rales, rhonchi or wheezes noted. No increased work of breathing, no retractions or nasal flaring. Abdomen/GI: Soft, non-tender, with normal bowel sounds. No distension or tympany. No guarding or rebound. No evidence of tenderness throughout. Back: No spinal tenderness. No costovertebral tenderness. Full range of motion. Skin: Warm, dry with normal turgor. Normal color with no rashes, no lesions, and no evidence of cellulitis. Neuro: Awake and alert, GCS 15, oriented to person, place, time, and situation. Cranial nerves II-XII grossly intact. Motor strength 5/5 in all extremities. Sensory grossly intact. Cerebellar exam normal. Normal gait. Psych: Awake, alert, with orientation to person, place and time. Behavior, mood, and affect are within normal limits. 10:12 Musculoskeletal/extremity: Extremities: grossly normal except: noted in the right elbow: decreased ROM, pain, swelling, decreased ROM, ROM: limited active range of motion due to pain, limited passive range of motion due to pain, in the right elbow, Circulation is intact in all extremities. Severe pain noted. Vital Signs: 09: BP 152 / 84; Pulse 66; Resp 16; Temp 97.4(TE); Weight 106.59 kg; Height 5 ft. 6 in. ; hb Pain 10; 09:22 Body Mass Index 37.93 (106.59 kg, 167.64 cm) hb 09:22 Pain Scale: Adult hb Procedures: 13:27 Splinting: Splint applied to right elbow using Orthoglass splint, applied by tech. snw Examined by me, post splint application: neurovascular intact, 2+ distal pulses palpable, brisk capillary refill noted, Patient tolerated well. MDM: 09:14 Patient medically screened. snw 11:32 Differential diagnosis: closed fracture, contusion. Data reviewed: vital signs, nurses snw notes, radiologic studies, plain films. I considered the following discharge prescriptions or medication management in the emergency department Medications were administered in the Emergency Department. See MAR. Counseling: I had a detailed discussion with the patient and/or guardian regarding the historical points, exam findings, and any diagnostic results supporting the discharge/admit diagnosis, radiology results, the need for outpatient follow up, for definitive care, to return to the emergency department if symptoms worsen or persist or if there are any questions or concerns that arise at home. Response to treatment: the patient's symptoms have markedly improved after treatment. Special discussion: Based on the history and exam findings, there is no indication for further emergent testing or inpatient evaluation. I discussed with the patient/guardian the need to see the orthopedic surgeon for further evaluation of the symptoms. I discussed with the patient/guardian the need to see the primary care provider for further evaluation of the symptoms. 10/07 09:31 Order name: Elbow Right 3 View XRAY; Complete Time: 11:11 snw 12 09:31 Order name: Forearm Right XRAY; Complete Time: 11:12 snw 10/07 11:22 Order name: Posterior Elbow Splint: will attempt 90 degrees; Complete Time: 13:32 snw 10/07 11:22 Order name: Sling; Complete Time: 13:32 snw Administered Medications: 09:41 Drug: HYDROmorphone IM 1 mg IM once Route: IM; Site: left deltoid; mb9 13:30 Follow up: Response: No adverse reaction cm10 09:41 Drug: Diazepam PO 10 mg PO once Route: PO; mb9 13:30 Follow up: Response: No adverse reaction cm10 12:46 Drug: HYDROmorphone IM 1 mg IM once Route: IM; Site: left deltoid; hb 13:30 Follow up: Response: No adverse reaction cm10 Disposition: 16:56 Co-signature as Attending Physician, Robin Stockton MD I reviewed the patient's care rn provided by the Advanced Practice Provider and agree with the diagnosis and treatment plan. Disposition Summary: 10/07/23 11:28 Discharge Ordered Notes: Location: Home snw Condition: Stable snw Diagnosis - Pain in right elbow snw - Distal humerus fracture with dorsal displacement of fracture fragment snw Followup: snw - With: Private Physician - When: Today - Reason: Recheck today's complaints, Continuance of care, Re-evaluation by your physician Followup: snw - With: Emergency Department - When: As needed - Reason: Worsening of condition Discharge Instructions: - Discharge Summary Sheet snw - Joint Pain snw - Cast or Splint Care, Adult snw - How to Use Cold Therapy snw - How to Use a Sling snw - Distal Humerus Elbow Fracture snw Forms: - Medication Reconciliation Form snw - Thank You Letter snw - Antibiotic Education snw - Prescription Opioid Use snw - Patient Portal Instructions snw - Leadership Thank You Letter snw Prescriptions: - acetaminophen-codeine 300-30 mg Oral tablet - take 1 tablet ORAL route every 6 hours; 15 tablet; Refills: 0, Product snw Selection Permitted - Mobic 7.5 mg Oral Tablet - take 1 tablet ORAL route once daily take with food; 20 tablet; Refills: 0, snw Product Selection Permitted Signatures: Dispatcher [employer] Fartun Feng, MAO-C PURCHASING ADMINISTRATIVE ASSISTANT-Csnw Robin Stockton MD MD rn Baxter, Heather RN BECKIE Saloni Amador RN RN mb9 Sabina Joe RN cm10
--- NOTE | 2023-10-07 11:29 | ER ---
Nurse's Notes [facility] Name: Vandana Aguirre Age: 62 yrs Sex: Female : 1960 Arrival Date: 10/07/2023 Time: 09:04 Bed 11 Private MD: Diagnosis: Pain in right elbow;Distal humerus fracture with dorsal displacement of fracture fragment Presentation: 10/07 09:22 Chief complaint: Chief complaint: Right arm pain 10/10 after mechanical fall from standing 2 hours ago. Unable to move right arm. Also c/o bilateral knee pain. Denies other injuries. Negative LOC. Coronavirus screen: At this time, the client does not indicate any symptoms associated with coronavirus-19. Ebola Screen: No symptoms or risks identified at this time. Initial Sepsis Screen: Does the patient meet any 2 criteria? No. Patient's initial sepsis screen is negative. Does the patient have a suspected source of infection? No. Patient's initial sepsis screen is negative. Risk Assessment: Do you want to hurt yourself or someone else? Patient reports no desire to harm self or others. Onset of symptoms was October 07, 2023 at 07:30. 09:22 Method Of Arrival: Ambulatory hb 09:22 Acuity: KAVON 2 hb Historical: - Allergies: 09:26 Erythromycin; hb 09:26 PENICILLINS; hb - Home Meds: 09:28 atorvastatin oral [Active]; Lisinopril Oral [Active]; hb - PMHx: 09:28 Hypertension; hb - Immunization history:: Adult Immunizations up to date. - Social history:: Smoking status: . Screenin:15 [facility] ED Fall Risk Assessment (Adult) Score/Fall Risk Level 0 - 2 = Low Risk hb Oriented to surroundings, Maintained a safe environment, Educated pt \T\ family on fall prevention, incl call for assistance when getting out of bed. Abuse screen: Denies threats or abuse. Denies injuries from another. Nutritional screening: No deficits noted. Tuberculosis screening: No symptoms or risk factors identified. Assessment: 09:30 General: Appears in no apparent distress. uncomfortable, Behavior is calm, cooperative. hb Pain: Pain currently is 10 out of 10 on a pain scale. Neuro: Level of Consciousness is awake, alert, obeys commands, Oriented to person, place, time, situation. Cardiovascular: Patient's skin is warm and dry. Respiratory: Respiratory effort is even, unlabored, Respiratory pattern is regular, symmetrical. GI: No signs and/or symptoms were reported involving the gastrointestinal system. : No signs and/or symptoms were reported regarding the genitourinary system. EENT: No signs and/or symptoms were reported regarding the EENT system. Derm: Skin is pink, warm \T\ dry. Musculoskeletal: Reports severe right arm pain, bilateral knee pain. Vital Signs: 09:22 BP 152 / 84; Pulse 66; Resp 16; Temp 97.4(TE); Weight 106.59 kg; Height 5 ft. 6 in. ; hb Pain 10; 09:22 Body Mass Index 37.93 (106.59 kg, 167.64 cm) hb 09:22 Pain Scale: Adult hb ED Course: 09:07 Patient arrived in ED. mg5 09:13 Fartun Valle FNP-C [facility]. snw 09:13 Robin Stockton MD is Attending Physician. snw 09:25 Triage completed. hb 09:26 Arm band placed on. hb 10:15 Patient has correct armband on for positive identification. Provided Education on: . hb 11:04 Elbow Right 3 View XRAY In Process Unspecified. EDMS 11:04 Forearm Right XRAY In Process Unspecified. EDMS 13:32 No provider procedures requiring assistance completed. Patient did not have IV access cm10 during this emergency room visit. Orthoglass splint: posterior long arm splint applied to the right arm. Sling applied to right arm. Administered Medications: 09:41 Drug: HYDROmorphone IM 1 mg IM once Route: IM; Site: left deltoid; mb9 13:30 Follow up: Response: No adverse reaction cm10 09:41 Drug: Diazepam PO 10 mg PO once Route: PO; mb9 13:30 Follow up: Response: No adverse reaction cm10 12:46 Drug: HYDROmorphone IM 1 mg IM once Route: IM; Site: left deltoid; hb 13:30 Follow up: Response: No adverse reaction cm10 Medication: 11:06 VIS not applicable for this client. hb Outcome: 11:28 Discharge ordered by . snw 13:33 Discharged to home via ambulance, with significant other, cm10 13:33 Condition: good 13:33 Discharge instructions given to patient, significant other, Instructed on discharge instructions, follow up and referral plans. medication usage, Demonstrated understanding of instructions, follow-up care, medications, splint care, Prescriptions given X 2, 13:33 Patient left the ED. cm10 Signatures: Dispatcher [employer] EDMS Fartun Valle, ELECTRICAL APPRENTICE-C ELECTRICAL APPRENTICE-Csnw Daniella Ingram RN RN Perry, Saloni Simpson RN RN mb9 Sabina Joe RN RN cm10 Solange Castro mg5 Corrections: (The following items were deleted from the chart) 09:27 09:22 Acuity: KAVON 3 hb hb 13:33 13:32 Orthoglass splint: Sling applied to right arm. cm10 cm10
[2023-10-07 13:41] VITALS: BP 152/84; TEMP 97.4
== END 2023-10-07 13:33 | disposition home or self-care (01) ==
LOC: ER 09:04
PROC: 2W3AX1Z Immobilization of Right Upper Arm using Splint (ICD-10-PCS; principal; 2023-10-07)
DX: S42.401A Unspecified fracture of lower end of right humerus, initial encounter for closed fracture (principal); Z88.0 Allergy status to penicillin; Z88.3 Allergy status to other anti-infective agents
CPT/HCPCS: 73080; 73090; 96372; 99284; 29105; J1170 ×2